=== PATIENT | female | born 1935 | race Caucasian/White ===

== ENCOUNTER 2016-11-07 22:57 | Inpatient (IN) | payer OTHER, MEDICARE ==
[~2016-11-07] VITALS: Ht 160 cm; Wt 68.0 kg
[~2016-11-07 22:57] MED LIST: ALBU2.5I INH; ANTI25TA2 PO; CHOL50006 PO; IPRAAER INH; LEVO.075 PO; POLY119S PO; PRED5TAB PO; ULTR50TA PO
[2016-11-07 22:59] VITALS: BP 147/90; PULSE 108; RESP 24; TEMP 98.9; O2SAT 92
[2016-11-07 23:01] VITALS: PULSE 111; RESP 26; O2SAT 92
[2016-11-07 23:10] VITALS: BP 130/97; PULSE 105; RESP 26; O2SAT 90
[2016-11-07 23:11] VITALS: O2SAT 99
[2016-11-07] MEDS ORDERED: IPRA0.02 NEB (23:13)
[2016-11-07] MEDS ORDERED: LEVO.075 PO (23:13)
[2016-11-07] MEDS ORDERED: RESP: ALBUTEROL 2.5 MG/IPRATROPIUM 0.5 MG NEB (SCH) ONE ×3 (23:19→23:20)
[2016-11-07 23:24] VITALS: O2SAT 100
[2016-11-07 23:26] VITALS: O2SAT 97
[2016-11-07] MEDS ORDERED: methylPREDNISolone SOD SUCC 125 MG/2 ML VIAL IVP ONE (23:30)
[2016-11-07] MEDS: RESP: ALBUTEROL 2.5 MG/IPRATROPIUM 0.5 MG NEB (SCH) INH ×2 (23:39→23:40)
[2016-11-07 23:55] LABS: BASOPHIL % 0.2 % (0.0-2.0); EOSINOPHIL # 0.1 TH/MM3 (0-0.4); EOSINOPHIL % 0.6 % (0.0-4.0); HEMATOCRIT 41.5 % (35.0-46.0); HEMO FLAGS DIFF FINAL; LYMPHOCYTE # 1.1 TH/MM3 (1.0-4.8); MEAN CELL VOLUME 89.3 FL (80.0-100.0); MEAN CORPUSCULAR HEMOGLOBIN 30.3 PG (27.0-34.0); MEAN CORPUSCULAR HGB CONC 33.9 % (32.0-36.0); MONO % 10.5 % (0.0-8.0); NEUT % 79.7 % (16.0-70.0); PLATELET COUNT 251 TH/MM3 (150-450); RED BLOOD COUNT 4.65 MIL/MM3 (4.00-5.30); RED CELL DISTRIBUTION WIDTH 13.9 % (11.6-17.2); WHITE BLOOD COUNT 12.6 TH/MM3 (4.0-11.0)
[2016-11-08] VITALS (26 sets, daily range): BP systolic 123–161; BP diastolic 62–89; PULSE 83–156; RESP 18–22; TEMP 97.5–98.1; O2SAT 92–98
[2016-11-08 00:06] LABS: BICARBONATE 32.4 MEQ/L (21.0-32.0); POTASSIUM 4.2 MEQ/L (3.5-5.1)
[2016-11-08] MEDS ORDERED: ADENOSINE IV SOLN 3 MG/ML 2 ML VIAL ONE (00:29)
[2016-11-08] MEDS ORDERED: DILTIAZEM HCL 25 MG/5 ML VIAL ONE (00:39)
--- NOTE | 2016-11-08 00:40 | RADRPT ---
EXAM DATE/TIME: 11/07/2016 23:59 [place] COMPARISON: CHEST SINGLE AP, April 23, 2009, 23:36. INDICATIONS : Short of breath and left side chest pain. MEDICAL HISTORY : Hypertension. Chronic obstructive pulmonary disease. SURGICAL HISTORY : None. ENCOUNTER: Initial ACUITY: 2 days PAIN SCORE: 2/10 LOCATION: Left lower chest FINDINGS: Single AP view of the chest. Calcified granuloma in the left lower lung. The lungs are otherwise ryan r. Cardiomediastinal silhouette within normal limits. No evidence of pleural effusion or pneumothorax . CONCLUSION: No acute cardiopulmonary disease identified. Derrek Lima MD on November 08, 2016 at 0:37 Board Certified Radiologist. This report was verified electronically.
[2016-11-08] MEDS ORDERED: ASPIRIN 81 MG CHEW TAB CHEW ONE (00:45)
[2016-11-08] MEDS ORDERED: DILTIAZEM HCL 25 MG/5 ML VIAL IV ONE (00:45)
[2016-11-08] MEDS ORDERED: ADENOSINE IV SOLN 3 MG/ML 2 ML VIAL IV PUSH ONE (00:45)
--- NOTE | 2016-11-08 02:17 | PD ---
HPI Chief Complaint: Respiratory Symptoms Time Seen by Provider: 23:28 Travel History International Travel<30 days: No Contact w/Intl Traveler<30days: No Traveled to known affect area: No History of Present Illness HPI This is an 81-year-old female who has a history of COPD who presents to the emergency department with 1 week of increasing shortness of breath, cough and sore throat. She reports that her shortness of breath it's been constant, worse with exertion and improved with rest. She's been trying to use her albuterol at home but over the past day or 2 it has not been helping as much. She says she feels like she has phlegm in her throat but she can't get it up. She also reports that over the past 3 days intermittently she's had some chest pressure, mild, unlike any pain she's had before. She denies any fevers or chills. PFSH Past Medical History Hx Anticoagulant Therapy: No Arthritis: Yes (OSTEOPOROSIS) Asthma: Yes Anxiety: No Depression: No Cancer: No Cardiovascular Problems: No Chemotherapy: No Chest Pain: Yes COPD: Yes Cerebrovascular Accident: No Diabetes: No Diminished Hearing: Yes (LT) Gastrointestinal Disorders: Yes Genitourinary: No Hypertension: Yes Implanted Vascular Access Dvce: Yes Neurologic: Yes Psychiatric: No Reproductive: Yes Respiratory: Yes (COPD) Migraines: Yes Myocardial Infarction: Yes Thyroid Disease: Yes (HYPO) Tetanus Vaccination: Unknown Influenza Vaccination: No PNEUMOCCOCAL Vaccine (Year): 2009 ?: Not Past Surgical History Abdominal Surgery: Yes Appendectomy: Yes Gynecologic Surgery: Yes (RT BREAST LUMPECTOMY X2(NON CANCEROUS)) Hysterectomy: No Joint Replacement: Yes (bilat hips) Other Surgery: Yes (Lumpectomy R breast x2) Social History Alcohol Use: Yes (occasional glass of wine) Tobacco Use: No Substance Use: No Allergies-Medications (Allergen,Severity, Reaction): Coded Allergies: Aspirin (Verified Allergy, Severe, Upset stomach, 11/07/16) Flu Vaccine (Verified Allergy, Severe, asthma, 11/07/16) Shellfish (Verified Allergy, Severe, THROAT SWELLING,HIVES, 11/07/16) Sulfites & Bisulfites (Verified Allergy, Severe, Upset stomach, 11/07/16) Vioxx (Verified Allergy, Severe, Upset stomach, 11/07/16) Bee Sting (Verified Allergy, Intermediate, Upset stomach & HIVES, 11/07/16) Common Ragweed (Verified Allergy, Mild, 11/07/16) Reported Meds & Prescriptions Reported Meds & Active Scripts Active Reported Synthroid (Levothyroxine Sodium) 75 Mcg Tab 75 Mcg PO DAILY Ipratropium Neb (Ipratropium [place]) 0.5 Mg/2.5 Ml Amp 0.5 Mg NEB Q2HR NEB Review of Systems Except as stated in HPI: all other systems reviewed are Neg Physical Exam Narrative GENERAL:Well appearing, no acute distress SKIN: Focused skin assessment warm and dry. HEAD: Atraumatic. Normocephalic. EYES: Pupils equal and round. No injection or drainage. ENT: Dry mucous membranes. NECK: Trachea midline. CARDIOVASCULAR: Tachycardic. No murmur appreciated. No edema or JVD. RESPIRATORY: Diffuse wheezing, some tachypnea, prolonged expiratory phase GASTROINTESTINAL: Abdomen soft, non-tender, nondistended. MUSCULOSKELETAL: No obvious deformities. NEUROLOGICAL: Awake and alert. No obvious cranial nerve deficits. Moving all extremities. PSYCHIATRIC: Appropriate mood and affect; insight and judgment normal. Data Data Last Documented VS Vital Signs Date Time Temp Pulse Resp B/P Pulse Ox O2 Delivery O2 Flow Rate FiO2 11/08/16 01:18 99 18 137/67 94 Nasal Cannula 2 11/07/16 22:59 98.9 Orders Albuterol-Ipratropium Neb (Duoneb Neb) (11/07/16 23:19) Albuterol-Ipratropium Neb (Duoneb Neb) (11/07/16 23:19) Albuterol-Ipratropium Neb (Duoneb Neb) (11/07/16 23:20) Complete Blood Count With Diff (11/07/16 23:23) Basic Metabolic Panel (Bmp) (11/07/16 23:23) Blood Culture (11/07/16 23:23) Iv Access Insert/Monitor (11/07/16 23:23) Ecg Monitoring (11/07/16 23:23) Oxygen Administration (11/07/16 23:23) Oximetry (11/07/16 23:23) Electrocardiogram (11/07/16 23:23) Methylprednisolone So Succ Inj (Solumedr (11/07/16 23:30) Albuterol-Ipratropium Neb (Duoneb Neb) (11/07/16 23:30) Chest, Single Ap (11/07/16 23:23) Adenosine Inj (Adenocard Inj) (11/08/16 00:29) Troponin I (11/08/16 00:33) B-Type Natriuretic Peptide (11/08/16 00:33) Aspirin Chew (Aspirin Chew) (11/08/16 00:45) Adenosine Inj (Adenocard Inj) (11/08/16 00:45) Diltiazem Inj (Cardizem Inj) (11/08/16 00:45) Diltiazem Inj (Cardizem Inj) (11/08/16 00:39) Labs Laboratory Tests Test 11/07/16 23:25 White Blood Count 12.6 TH/MM3 Red Blood Count 4.65 MIL/MM3 Hemoglobin 14.1 GM/DL Hematocrit 41.5 % Mean Corpuscular Volume 89.3 FL Mean Corpuscular Hemoglobin 30.3 PG Mean Corpuscular Hemoglobin 33.9 % Concent Red Cell Distribution Width 13.9 % Platelet Count 251 TH/MM3 Mean Platelet Volume 9.2 FL Neutrophils (%) (Auto) 79.7 % Lymphocytes (%) (Auto) 9.0 % Monocytes (%) (Auto) 10.5 % Eosinophils (%) (Auto) 0.6 % Basophils (%) (Auto) 0.2 % Neutrophils # (Auto) 10.0 TH/MM3 Lymphocytes # (Auto) 1.1 TH/MM3 Monocytes # (Auto) 1.3 TH/MM3 Eosinophils # (Auto) 0.1 TH/MM3 Basophils # (Auto) 0.0 TH/MM3 CBC Comment DIFF FINAL Differential Comment Sodium Level 136 MEQ/L Potassium Level 4.2 MEQ/L Chloride Level 98 MEQ/L Carbon Dioxide Level 32.4 MEQ/L Anion Gap 6 MEQ/L Blood Urea Nitrogen 14 MG/DL Creatinine 0.69 MG/DL Estimat Glomerular Filtration 81 ML/MIN Rate Random Glucose 114 MG/DL Calcium Level 9.4 MG/DL Troponin I LESS THAN 0.02 NG/ML B-Type Natriuretic Peptide 60 PG/ML MDM Medical Decision Making Medical Screen Exam Complete: Yes Emergency Medical Condition: Yes Interpretation(s) Afebrile, tachycardic, mild hypertension, 90% on room air EKG: Normal sinus rhythm with no ST changes Mild leukocytosis with 79% neutrophils Electrolytes are reassuring Troponin is normal BNP is 60 Chest x-rays reassuring Differential Diagnosis COPD exacerbation, congestive heart failure, pulmonary embolism, pneumonia Narrative Course This is a 81-year-old female who presents to the emergency department with shortness of breath it's been going on for 1 week. She has a history of COPD. On arrival she had poor air movement and diffuse wheezing. She was given thiamine Medrol and serial bronchodilator treatments. Her breathing improved significantly however then she started to describe some chest discomfort and her heart rate was in the 150s. It appeared to be a narrow complex tachycardia consistent with SVT. She was given 6 mg of adenosine and converted back to a normal sinus rhythm but after about 3 minutes she had a recurrence of SVT. Patient was given 12 mg of adenosine. She was then given a 15 mg IV Cardizem bolus. Her heart rate remained in the 90s to 110s and sinus rhythm throughout the rest of her emergency department stay. Labs were obtained which were reassuring with a normal troponin and normal BNP. I suspect the patient's chest discomfort may be related to intermittent episodes of SVT. Patient will be admitted for continued pulmonary treatment and possible cardiology evaluation. Critical Care Narrative Aggregate critical care time was 45 minutes. Time to perform other separately billable procedures was not included in the critical care time. My time did not include minutes spent treating any other patients simultaneously or on activities that did not directly contribute to the patient's treatment. The services I provided to this patient were to treat and/or prevent clinically significant deterioration that could result in: Disability, I provided critical care services requiring my management, as noted below: Chart data review, documentation time, medication orders and management, vital sign assessments/reviewing monitor data, ordering and reviewing lab tests, ordering and interpreting/reviewing x-rays and diagnostic studies, care of the patient and discussion of the patient with the admitting physicians. Diagnosis Primary Impression: COPD exacerbation Additional Impression: SVT (supraventricular tachycardia) Admitting Information Admitting Physician Requests: Admit Nirmala Lopez MD Nov 08, 2016 02:17
[2016-11-08] MEDS ORDERED: NALOXONE HCL 0.4 MG/ML AMP IV PRN (02:30)
[2016-11-08] MEDS ORDERED: SODIUM CHLORIDE 0.9% FLUSH 10 ML FLUSH IV FLUSH PRN (02:30)
--- NOTE | 2016-11-08 02:45 | HHI.HP ---
HPI Service [facility] Primary Care Physician aMrilin Vasquez M.D. Admission Diagnosis copd exacerbation, svt Diagnoses: Travel History International Travel<30 Days: No Contact w/Intl Traveler <30 Da: No Traveled to Known Affected Are: No History of Present Illness History from patient, ER physician communication, and review of medical records. Patient reported that she has been short of breath since Saturday. She also reports of coughing constantly with sputum of darkish brownish color. Denies fever. She states that she was using her nebulizers almost every 2-3 hours in the past 2 days. She states that after the above episodes of shortness of breath, she also started having chest pains. She did feel palpitations and racing hearts. She was reports of some nausea. At one point, she actually woke up from sleep with severe sweats in the middle of the night. reports she lives by herself In the emergency room, patient was given nebulizer treatments will continue to back for her COPD exacerbation. She then was noted to have tachycardia which basically became SVT with heart rate in the 150s. She was given adenosine to break this and also required Cardizem 10 mg IV push. The time of my exam, patient's heart rate was around 110. Review of Systems Except as stated in HPI: all other systems reviewed are Neg Past Family Social History Past Medical History copd hypothyroid skin cancer on the right face - planned for surgery next moth reports of multiple frequent syncopes past 4yrs- stated had holter, echo, carotid outpatient osteoporosis- by bone density studies per patient Past Surgical History kyphoplasty appendectomy hip replacement twice lumpectomy twice Allergies: Coded Allergies: Aspirin (Verified Allergy, Severe, Upset stomach, 11/07/16) Flu Vaccine (Verified Allergy, Severe, asthma, 11/07/16) Shellfish (Verified Allergy, Severe, THROAT SWELLING,HIVES, 11/07/16) Sulfites & Bisulfites (Verified Allergy, Severe, Upset stomach, 11/07/16) Vioxx (Verified Allergy, Severe, Upset stomach, 11/07/16) Bee Sting (Verified Allergy, Intermediate, Upset stomach & HIVES, 11/07/16) Common Ragweed (Verified Allergy, Mild, 11/07/16) Family History none that she knows of dad of old age mom brain tumor- at 35 yo Social History never smoked- but was exposed to second hand smoke for 45yrs from her late only social drinker once a month no drugs lives by herself Physical Exam Vital Signs Vital Signs Date Time Temp Pulse Resp B/P Pulse Ox O2 Delivery O2 Flow Rate FiO2 11/08/16 02:21 90 22 150/72 93 Nasal Cannula 2 11/08/16 01:18 99 18 137/67 94 Nasal Cannula 2 11/08/16 00:43 111 11/08/16 00:42 108 20 141/62 92 Nasal Cannula 2 11/08/16 00:35 156 22 127/78 92 Nasal Cannula 2 11/08/16 00:33 115 22 123/74 94 Nasal Cannula 2 11/07/16 23:26 97 Nasal Cannula 2 11/07/16 23:26 97 Nasal Cannula 2 11/07/16 23:24 100 Nasal Cannula 2.00 11/07/16 23:11 99 Nasal Cannula 2 11/07/16 23:10 105 26 130/97 90 Room Air 11/07/16 23:01 111 26 92 11/07/16 22:59 98.9 108 24 147/90 92 Room Air Physical Exam GENERAL: This is a well-nourished, well-developed patient, in no apparent distress. SKIN: No rashes, ecchymoses or lesions. Cool and dry. HEAD: Atraumatic. Normocephalic. No temporal or scalp tenderness. EYES: . No scleral icterus. No injection or drainage. ENT: Nose without bleeding, purulent drainage or septal hematoma. Airway patent. NECK: Trachea midline. No JVD CARDIOVASCULAR: Tachycardic, regular rhythm without murmurs, gallops, or rubs. RESPIRATORY: Decreased air entry bilaterally. Tight air entry. GASTROINTESTINAL: Abdomen soft, non-tender, nondistended. No hepato-splenomegaly , or palpable masses. No guarding. MUSCULOSKELETAL: Extremities without clubbing, cyanosis, or edema. No joint tenderness, effusion, or edema noted. No calf tenderness. NEUROLOGICAL: Awake and alert. Motor and sensory grossly within normal limits. Normal speech. Laboratory Laboratory Tests Test 11/07/16 23:25 White Blood Count 12.6 Red Blood Count 4.65 Hemoglobin 14.1 Hematocrit 41.5 Mean Corpuscular Volume 89.3 Mean Corpuscular Hemoglobin 30.3 Mean Corpuscular Hemoglobin 33.9 Concent Red Cell Distribution Width 13.9 Platelet Count 251 Mean Platelet Volume 9.2 Neutrophils (%) (Auto) 79.7 Lymphocytes (%) (Auto) 9.0 Monocytes (%) (Auto) 10.5 Eosinophils (%) (Auto) 0.6 Basophils (%) (Auto) 0.2 Neutrophils # (Auto) 10.0 Lymphocytes # (Auto) 1.1 Monocytes # (Auto) 1.3 Eosinophils # (Auto) 0.1 Basophils # (Auto) 0.0 CBC Comment DIFF FINAL Differential Comment Sodium Level 136 Potassium Level 4.2 Chloride Level 98 Carbon Dioxide Level 32.4 Anion Gap 6 Blood Urea Nitrogen 14 Creatinine 0.69 Estimat Glomerular Filtration 81 Rate Random Glucose 114 Calcium Level 9.4 Troponin I LESS THAN 0.02 B-Type Natriuretic Peptide 60 Date/Time Procedure Status Source Growth 11/07/16 23:25 Aerobic Blood Culture Received Blood Peripheral Pending 11/07/16 23:25 Anaerobic Blood Culture Received Blood Peripheral Pending Result Diagram: 11/07/16232411/07/162324 Imaging Last 48 hours Impressions Chest X-Ray 11/07/162322 Signed Impressions: Service Date/Time: Monday, November 07, 2016 23:59 - CONCLUSION: No acute cardiopulmonary disease identified. Derrek Lima MD Assessment and Plan Assessment and Plan Impression: COPD exacerbation Chest painwill need to rule out ACS. However this is rate related most likely. SVTlikely from beta agonist. We'll monitor on telemetry. Plan: Adjuvants scheduled and when necessary. Solu-Medrol 40 mg IV every 6 hours. Would start patient on levofloxacin 750 mg IV every 24 hours. Serial cardiac enzymes and EKGs. Monitor on telemetry. If there is evidence of SVT, would treat with adenosine. DVT prophylaxis at [facility]. GI prophylaxis with pantoprazole. Discussed Condition With Patient, ER physician, nursing staff Physician Certification 2 Midnight Certification Type: Admission for Inpatient Services Order for Inpatient Services The services are ordered in accordance with Medicare regulations or non- Medicare payer requirements, as applicable. In the case of services not specified as inpatient-only, they are appropriately provided as inpatient services in accordance with the 2-midnight benchmark. Estimated LOS (days): 2 days is the estimated time the patient will need to remain in the hospital, assuming treatment plan goals are met and no additional complications. Post-Hospital Plan: Home Shannan Kennedy MD Nov 08, 2016 02:45
[2016-11-08] MEDS: RESP: IPRATROPIUM 0.5 MG/2.5 ML NEB NEB SCH ×4 (03:25→21:07)
[2016-11-08] MEDS ORDERED: LEVOFLOXACIN 750 MG PREMIX INJ 150 ML IV SCH (04:00)
[2016-11-08] MEDS: methylPREDNISolone SOD SUCC 40 MG/1 ML VIAL IV PUSH SCH ×2 (06:00→11:57)
[2016-11-08] MEDS: LEVOTHYROXINE SODIUM 75 MCG TAB PO SCH (06:01)
[2016-11-08 06:16] LABS: AUTOMATED NEUTROPHIL # 11.3 TH/MM3 (1.8-7.7); BASOPHIL % 0.1 % (0.0-2.0); HEMATOCRIT 37.1 % (35.0-46.0); HEMO FLAGS DIFF FINAL; LYMPH % 2.7 % (9.0-44.0); LYMPHOCYTE # 0.3 TH/MM3 (1.0-4.8); MEAN CELL VOLUME 89.5 FL (80.0-100.0); MEAN CORPUSCULAR HGB CONC 33.5 % (32.0-36.0); MONO % 1.1 % (0.0-8.0); NEUT % 96.1 % (16.0-70.0); PLATELET COUNT 214 TH/MM3 (150-450); RED BLOOD COUNT 4.14 MIL/MM3 (4.00-5.30); RED CELL DISTRIBUTION WIDTH 13.8 % (11.6-17.2); WHITE BLOOD COUNT 11.7 TH/MM3 (4.0-11.0)
[2016-11-08 06:48] LABS: ANION GAP 7 MEQ/L (5-15); BICARBONATE 28.9 MEQ/L (21.0-32.0); BLOOD UREA NITROGEN 11 MG/DL (7-18); CHLORIDE 100 MEQ/L (98-107); GLOMERULAR FILTRATION RATE 80 ML/MIN (>89); SODIUM (NA) 136 MEQ/L (136-145)
[2016-11-08 06:53] LABS: CREATINE KINASE 77 U/L (26-192)
--- NOTE | 2016-11-08 08:33 | EKG ---
Date Performed: 11/08/2016 Time Performed: 00:27:50 PTAGE: 81 years EKG: SINUS TACHYCARDIA LEFT AXIS DEVIATION NONSPECIFIC ST & T-WAVE ABNORMALITY ABNORMAL ECG PREVIOUS TRACING : 11/07/2016 23.12 Compared to previous tracing, heart rate has increased. DOCTOR: Arben Galvan Interpretating Date/Time 11/08/2016 08:33:00
--- NOTE | 2016-11-08 08:33 | EKG ---
Date Performed: 11/08/2016 Time Performed: 00:46:04 PTAGE: 81 years EKG: SINUS TACHYCARDIA POSSIBLE INFERIOR MYOCARDIAL INFARCTION ABNORMAL ECG PREVIOUS TRACING : 11/07/2016 23.12 Compared to previous tracing, possible inferior infarct pat tern is now evident. DOCTOR: Arben Galvan Interpretating Date/Time 11/08/2016 08:32:11
--- NOTE | 2016-11-08 08:35 | EKG ---
Date Performed: 11/07/2016 Time Performed: 23:12:54 PTAGE: 81 years EKG: Sinus rhythm NORMAL ECG PREVIOUS TRACING : 07/15/2014 11.53 No significant change from previous tracing noted. DOCTOR: Arben Galvan Interpretating Date/Time 11/08/2016 08:33:45
[2016-11-08] MEDS: SODIUM CHLORIDE 0.9% FLUSH 10 ML FLUSH IV FLUSH SCH ×2 (09:07→20:37)
[2016-11-08] MEDS: ENOXAPARIN SODIUM 40 MG/0.4 ML SYRINGE SQ SCH (09:08)
[2016-11-08] MEDS: PANTOPRAZOLE SOD 40 MG DELAYED RELEASE TAB PO SCH (09:08)
--- NOTE | 2016-11-08 15:41 | HHI.PR ---
Subjective Remarks Follow-up for shortness of breath Per patient, shortness of breath is a lot better, chest pain has resolved. No nausea or vomiting Objective Vitals Vital Signs Date Time Temp Pulse Resp B/P Pulse Ox O2 Delivery O2 Flow Rate FiO2 11/08/16 15:00 87 11/08/16 15:00 98.0 94 21 161/89 95 11/08/16 14:03 97 11/08/16 13:02 84 11/08/16 12:00 94 11/08/16 11:04 97.9 101 18 130/73 94 11/08/16 11:04 111 11/08/16 10:00 96 11/08/16 09:41 93 Nasal Cannula 2.00 11/08/16 09:00 83 11/08/16 08:00 97.5 86 19 141/82 95 11/08/16 08:00 87 11/08/16 08:00 95 Nasal Cannula 2.00 11/08/16 07:42 88 18 140/78 94 Nasal Cannula 2 11/08/16 06:12 98.1 84 18 140/75 94 Room Air 11/08/16 05:30 90 18 127/68 98 Nasal Cannula 2 11/08/16 02:21 90 22 150/72 93 Nasal Cannula 2 11/08/16 01:18 99 18 137/67 94 Nasal Cannula 2 11/08/16 00:43 111 11/08/16 00:42 108 20 141/62 92 Nasal Cannula 2 11/08/16 00:35 156 22 127/78 92 Nasal Cannula 2 11/08/16 00:33 115 22 123/74 94 Nasal Cannula 2 11/07/16 23:26 97 Nasal Cannula 2 11/07/16 23:26 97 Nasal Cannula 2 11/07/16 23:24 100 Nasal Cannula 2.00 11/07/16 23:11 99 Nasal Cannula 2 11/07/16 23:10 105 26 130/97 90 Room Air 11/07/16 23:01 111 26 92 11/07/16 22:59 98.9 108 24 147/90 92 Room Air Result Diagram: 11/08/16 0603 11/08/16 0603 Objective Remarks Not in distress, well-nourished, looks stated age PERRL, pink conjunctiva without injection, anicteric Nose without bleeding, airway patent, oropharynx clear Supple neck, no masses or thyromegaly, trachea midline Normal rate and regular rhythm, positive for pericardial rub,? Murmur. Decreased breath sounds bilaterally Normal bowel sounds, soft, non-tender, nondistended, no guarding. Extremities without clubbing, cyanosis, or edema. No rash of generalized distribution. Skin is warm and dry. AAO x3, no cranial nerve deficits, moves all 4 extremities, no focal neurologic deficits Normal mood, appropriate affect A/P Assessment and Plan COPD exacerbation -continue Solu-Medrol, taper to oral prednisone, continue Levaquin Chest painwill need to rule out ACS. Troponin negative 2. Monitor. Likely secondary to tachycardia. SVTlikely from beta agonist. We'll monitor on telemetry. EKG consistent with sinus tachycardia. We'll give Xopenex if needed. We'll also give IVF. Check echocardiogram with murmur/pericardial rub DVT prophylaxis at [facility]. GI prophylaxis with pantoprazole. Discharge Planning Possible discharge tomorrow if echocardiogram is normal Sheryl Carbone MD Nov 08, 2016 15:41
[2016-11-08 16:22] LABS: CREATINE KINASE 75 U/L (26-192)
--- NOTE | 2016-11-08 17:53 | ECHRPT ---
Indication: CONCLUSIONS Normal left ventricular size and wall thickness. The left ventricular systolic function is normal wi th an estimated ejection fraction in the range of 60-65%. Left ventricular diastolic function parameters a re normal. There is trace tricuspid valve regurgitation. The estimated pulmonary arterial pressure is 17 mmHg. There is a small pericardial effusion present. Technically difficult study. BP: / HR: 80 Rhythm: Sinus MEASUREMENTS (Male / Female) Normal Values Technical Quality:Technically difficult study 2D ECHO LV Diastolic Diameter PLAX 4.0 cm 4.2 - 5.9 / 3.9 - 5.3 cm LV Systolic Diameter PLAX 2.9 cm IVS Diastolic Thickness 1.1 cm 0.6 - 1.0 / 0.6 - 0.9 cm LVPW Diastolic Thickness 1.1 cm 0.6 - 1.0 / 0.6 - 0.9 cm LV Relative Wall Thickness 0.6 LVOT Diameter 1.8 cm M-MODE Aortic Root Diameter MM 3.0 cm LA Systolic Diameter MM 3.1 cm LA Ao Ratio MM 1.0 AV Cusp Separation MM 1.9 cm DOPPLER TR Peak Velocity 136.0 cm/s TR Peak Gradient 7.4 mmHg FINDINGS LEFT VENTRICLE Normal left ventricular size and wall thickness. The left ventricular systolic function is normal wi th an estimated ejection fraction in the range of 60-65%. Left ventricular diastolic function parameters a re normal. RIGHT VENTRICLE Normal right ventricular size and systolic function. LEFT ATRIUM The left atrial size is normal. RIGHT ATRIUM The right atrial size is normal. ATRIAL SEPTUM Normal atrial septal thickness without atrial level shunting by limited color doppler interrogation. AORTA The aortic root and proximal ascending aorta are normal in size on limited imaging. MITRAL VALVE Structurally normal mitral valve. No mitral valve stenosis or regurgitation. AORTIC VALVE Trileaflet aortic valve. No aortic valve stenosis or regurgitation. TRICUSPID VALVE There is trace tricuspid valve regurgitation. The estimated pulmonary arterial pressure is 17 mmHg. PULMONARY VALVE The pulmonary valve is not well visualized. VESSELS The inferior vena cava is normal in size. PERICARDIUM There is a small pericardial effusion present. Varun Rojas MD, FACC (Electronically Signed) Final Date:08 November 2016 17:52
[2016-11-08] MEDS: RESP: IPRATROPIUM 0.5 MG/2.5 ML NEB NEB PRN (18:39)
[2016-11-08] MEDS: predniSONE 20 MG TAB PO SCH (20:37)
[2016-11-09] VITALS (13 sets, daily range): BP systolic 135–153; BP diastolic 88–92; PULSE 75–119; RESP 19–20; TEMP 97.4–98.1; O2SAT 95–97
[2016-11-09] MEDS: RESP: IPRATROPIUM 0.5 MG/2.5 ML NEB NEB PRN ×2 (00:39→10:16)
[2016-11-09] MEDS: RESP: IPRATROPIUM 0.5 MG/2.5 ML NEB NEB SCH ×2 (03:49→07:37)
[2016-11-09] MEDS: LEVOTHYROXINE SODIUM 75 MCG TAB PO SCH (05:55)
[2016-11-09] MEDS ORDERED: PRED20 PO (08:01)
[2016-11-09] MEDS ORDERED: ADVA100A INH (08:01)
[2016-11-09] MEDS ORDERED: LEVA750T9 PO (08:01)
--- NOTE | 2016-11-09 08:04 | HHI.DS ---
Discharge Summary Admission Date Nov 08, 2016 at 02:27 Discharge Date: Nov 09, 2016 Admitting Diagnosis copd exacerbation, svt (1) COPD exacerbation ICD Code: J44.1 Diagnosis: Principal (2) SVT (supraventricular tachycardia) ICD Code: I47.1 Diagnosis: Secondary Procedures None Brief History - From Admission History from patient, ER physician communication, and review of medical records. Patient reported that she has been short of breath since Saturday. She also reports of coughing constantly with sputum of darkish brownish color. Denies fever. She states that she was using her nebulizers almost every 2-3 hours in the past 2 days. She states that after the above episodes of shortness of breath, she also started having chest pains. She did feel palpitations and racing hearts. She was reports of some nausea. At one point, she actually woke up from sleep with severe sweats in the middle of the night. reports she lives by herself In the emergency room, patient was given nebulizer treatments will continue to back for her COPD exacerbation. She then was noted to have tachycardia which basically became SVT with heart rate in the 150s. She was given adenosine to break this and also required Cardizem 10 mg IV push. The time of my exam, patient's heart rate was around 110. CBC/BMP: 11/08/16 0603 11/08/16 0603 Significant Findings Laboratory Tests Test 11/07/16 11/08/16 11/08/16 23:25 06:03 15:23 White Blood Count 12.6 TH/MM3 11.7 TH/MM3 (4.0-11.0) (4.0-11.0) Neutrophils (%) (Auto) 79.7 % 96.1 % (16.0-70.0) (16.0-70.0) Monocytes (%) (Auto) 10.5 % (0.0-8.0) Neutrophils # (Auto) 10.0 TH/MM3 11.3 TH/MM3 (1.8-7.7) (1.8-7.7) Monocytes # (Auto) 1.3 TH/MM3 (0-0.9) Carbon Dioxide Level 32.4 MEQ/L (21.0-32.0) Estimat Glomerular Filtration 81 ML/MIN (>89) 80 ML/MIN (>89) Rate Random Glucose 114 MG/DL 172 MG/DL (74-106) (74-106) Troponin I LESS THAN 0.02 LESS THAN 0.02 LESS THAN 0.02 NG/ML NG/ML NG/ML (0.02-0.05) (0.02-0.05) (0.02-0.05) Lymphocytes (%) (Auto) 2.7 % (9.0-44.0) Lymphocytes # (Auto) 0.3 TH/MM3 (1.0-4.8) Imaging Last Impressions Chest X-Ray 11/07/16 [id number] Signed Impressions: Service Date/Time: Monday, November 07, 2016 23:59 - CONCLUSION: No acute cardiopulmonary disease identified. Derrek Lima MD PE at Discharge Not in distress, well-nourished, looks stated age PERRL, pink conjunctiva without injection, anicteric Nose without bleeding, airway patent, oropharynx clear Supple neck, no masses or thyromegaly, trachea midline Normal rate and regular rhythm, positive for pericardial rub,? Murmur. Decreased breath sounds bilaterally Normal bowel sounds, soft, non-tender, nondistended, no guarding. Extremities without clubbing, cyanosis, or edema. No rash of generalized distribution. Skin is warm and dry. AAO x3, no cranial nerve deficits, moves all 4 extremities, no focal neurologic deficits Normal mood, appropriate affect Pt update on day of discharge No overnight events, slept well, shortness of breath resolved, back to baseline. No chest pain. Has oxygen at home. Hospital Course This is an 81-year-old female who presented to the hospital with shortness of breath and chest pain. ACS was ruled out, troponin negative 3. Patient came in with sinus tachycardia/SVT which was probably thought to be secondary to too much beta agonist stimulation. She has been using her bronchodilators about 6 times a day. This improved with less nebulization. Patient shortness of breath secondary to COPD, patient was started on intravenous Solu-Medrol and will be discharged on oral prednisone pulse dosing. She was also started on Levaquin for which she will finish for 1 week. Echocardiogram was done which showed mild tricuspid regurgitation and small pericardial effusion. She will be started on Advair to prevent use of frequent nebulization. She was instructed to follow-up with her primary care physician one week Pt Condition on Discharge: Good Discharge Disposition: Discharge Home Discharge Time: > 30 minutes Discharge Instructions DIET: Follow Instructions for: Heart Healthy Diet Activities you can perform: Regular-No Restrictions New Medications: Fluticasone-Salmeterol Inh (Advair Diskus Inh) 100-50 Mcg/Blist Aer 1 PUFF INH BID Rinse mouth after use. Asthma Management #1 Ref 0 INHALER Levofloxacin (Levaquin) 750 Mg Tablet 750 MG PO DAILY bronchitis #6 TAB Prednisone (Prednisone) 20 Mg Tab 20 MG PO BID COPD #10 TAB Continued Medications: Ipratropium Neb (Ipratropium Neb) 0.5 Mg/2.5 Ml Amp 0.5 MG NEB Q2HR NEB Breathing Treatment Ref 0 NEBULE Levothyroxine (Synthroid) 75 Mcg Tab 75 MCG PO DAILY Thyroid #30 Ref 0 TAB Sheryl Carbone MD Nov 09, 2016 08:04
[2016-11-09] MEDS: SODIUM CHLORIDE 0.9% FLUSH 10 ML FLUSH IV FLUSH SCH (08:55)
[2016-11-09] MEDS: ENOXAPARIN SODIUM 40 MG/0.4 ML SYRINGE SQ SCH (08:56)
[2016-11-09] MEDS: PANTOPRAZOLE SOD 40 MG DELAYED RELEASE TAB PO SCH (08:56)
[2016-11-09] MEDS: predniSONE 20 MG TAB PO SCH (08:56)
[2016-11-09] MEDS ORDERED: LEVOFLOXACIN 750 MG TAB PO SCH (09:00)
== END 2016-11-09 11:34 | disposition home or self-care (01) | DRG 191 ==
LOC: NEPE 22:57 → NEDA 11-08 02:27 → HCIS 11-08 07:53
PROVIDERS: ADMIT Hospitalist; ATTEND Hospitalist
DX: J44.1 Chronic obstructive pulmonary disease with (acute) exacerbation (principal); I47.1 Supraventricular tachycardia; I10 Essential (primary) hypertension; M81.0 Age-related osteoporosis without current pathological fracture; E03.9 Hypothyroidism, unspecified; G43.909 Migraine, unspecified, not intractable, without status migrainosus; Z77.22 Contact with and (suspected) exposure to environmental tobacco smoke (acute) (chronic)
CPT/HCPCS: 71010; 80048; 82550; 83735; 83880; 84484; 85025; 87040; 93005; 93306; 94640; 94664; 96374; 96375; J0153; J1650; J1956; J2920; J2930; J7512; J7644